=== PATIENT | male | born 1940 | race African-American/Black ===

== ENCOUNTER 2018-02-13 12:56 | Emergency (ER) | payer SELFPAY ==
[~2018-02-13] VITALS: Ht 175.3 cm; Wt 59.0 kg
[2018-02-13 13:02] VITALS: BP 117/72
== END 2018-02-13 15:10 | disposition left against medical advice (07) ==
LOC: ER 12:56
DX: R53.1 Weakness (principal); Z53.21 Procedure and treatment not carried out due to patient leaving prior to being seen by health care provider

== ENCOUNTER 2018-03-05 09:39 | Inpatient (IN) | payer OTHER ==
[2018-03-05] VITALS (22 sets, daily range): BP systolic 75–136; BP diastolic 27–99
[~2018-03-05] VITALS: Ht 170.2 cm; Wt 50.1 kg
[2018-03-05] MEDS ORDERED: DEXTROSE 50% WATER 50ML SYRINGE IV ONE ×3 (09:54→10:30)
[2018-03-05] MEDS ORDERED: SODIUM CHLORIDE 0.9% 1000ML BAG (SEPSIS BOLUS) IV ONE (10:15)
[2018-03-05] MEDS ORDERED: PIPERACILLIN/TAZ 3.375G PREMIX 50 ML IV ONE (10:30)
[2018-03-05] MEDS ORDERED: VANCOMYCIN 1 G PREMIX 200 ML IV ONE (10:30)
[2018-03-05 11:13] LABS: INR 1.2; PROTHROMBIN TIME 12.1 sec (9.1-11.1)
[2018-03-05 13:13] LABS: HEMATOCRIT. 38.9 % (42.0-52.0); HEMOGLOBIN. 12.6 g/dL (14.0-18.0); MEAN CORPUSCULAR HEMOGLOBIN 33.4 pg (28.0-32.0); MEAN CORPUSCULAR VOLUME 103.1 fL (80.0-94.0); MEAN PLATELET VOLUME 10.5 fl (7.4-10.4); PLATELET 129 x1000/uL (130-400); RED BLOOD CELL COUNT 3.78 mill/uL (4.7-6.1); RED CELL DISTRIBUTION WIDTH 16.3 % (11.6-14.6)
[2018-03-05] MEDS ORDERED: NOREPINEPHRINE 4 MG in DEXT 5% WATER 250 ML IV STA (13:14)
[2018-03-05 13:23] LABS: CHLORIDE 105 mEq/L (98-107)
[2018-03-05 13:33] LABS: CREATINE KINASE 332 IU/L (39-308)
[2018-03-05 13:38] LABS: PLATELET ESTIMATE NORMAL
[2018-03-05] MEDS ORDERED: NOREPINEPHRINE 4 MG in DEXT 5% WATER 246 ML IV PRN (14:00)
[2018-03-05] MEDS ORDERED: MAGNESIUM/ALUMINUM HYDROXIDE/SIMETHICONE 30ML UDC PO PRN (15:30)
[2018-03-05] MEDS ORDERED: GUAIFENESIN 200MG/10ML SUGAR FREE UDC PO PRN (15:30)
[2018-03-05] MEDS ORDERED: IPRATROPIUM/ALBUTEROL 0.5-3(2.5)MG/3ML NEB INH PRN (15:30)
[2018-03-05] MEDS: BLOOD SUGAR DIAGNOSTIC STRIP TEST SCH ×9 (15:30→23:50)
[2018-03-05] MEDS ORDERED: AZITHROMYCIN 500 MG in DEXT 5% WATER 250 ML IV SCH (15:30)
[2018-03-05] MEDS ORDERED: NA PHOS,M-B/NA PHOS,DI-BA ENEMA 118ML PR PRN (15:30)
[2018-03-05] MEDS ORDERED: METRONIDAZOLE 500 MG PREMIX 100 ML IV SCH (15:30)
[2018-03-05] MEDS ORDERED: CLONIDINE 0.1MG TABLET PO PRN (15:30)
[2018-03-05] MEDS ORDERED: CEFTRIAXONE 1 G PREMIX 50 ML IV SCH (15:30)
[2018-03-05] MEDS ORDERED: ONDANSETRON HCL 4MG/2ML INJ IV PRN (15:30)
[2018-03-05] MEDS ORDERED: DOCUSATE SODIUM 100MG CAPSULE PO PRN (15:30)
[2018-03-05] MEDS ORDERED: ACETAMINOPHEN 325MG TABLET PO PRN (15:30)
[2018-03-05] MEDS ORDERED: DEXTROSE 50% WATER 50ML SYRINGE IV PRN ×2 (15:30)
[2018-03-05] MEDS ORDERED: INSULIN REGULAR (DRIP) 100 UNITS in SODIUM CHLORIDE 0.9% 99 ML IV SCH (16:00)
[2018-03-05 16:18] LABS: BG BASE EXCESS -8.3 mmol/L (-2.0-2.0); BG CARBOXYHEMOGLOBIN 0.2 % (0.5-1.5); BG DEOXYHEMOGLOBIN 1.7 % (0.0-5.0); BG FRACTION INSPIRED OXYGEN 28; BG HCO3 ACT 15.7 mmol/L (22.0-26.0); BG METHEMOGLOBIN 0.2 % (0.0-1.5); BG OXYGEN SATURATION 98.3 % (92.0-98.5); BG OXYHEMOGLOBIN 97.9 % (94.0-97.0); BG PCO2 27.9 mmHg (35.0-45.0); BG PH 7.367 (7.350-7.450); BG PO2 131.9 mmHg (75.0-100.0); BG SAMPLE SITE RIGHT BRACHIAL; BG TOTAL HEMOGLOBIN 12.3 g/dL (12.0-18.0); BG VENT MODE NASAL CANNULA
[2018-03-05] MEDS: SODIUM CHLORIDE 0.9% 1,000 ML IV SCH (16:30)
[2018-03-05] MEDS ORDERED: POLYMYXIN B SULFATE/TMP 10ML BOTTLE BOTHEYE SCH (17:00)
[2018-03-05] MEDS ORDERED: PIPERACILLIN/TAZ 2.25G PREMIX 50 ML IV SCH ×2 (17:00→19:30)
[2018-03-05] MEDS ORDERED: FOLIC ACID 1 MG, THIAMINE HCL 100 MG, MVI, ADULT NO.1 10 ML in DEXT 5%/0.45% NACL 1000M... IV ONE ×4 (17:00)
[2018-03-05 17:24] LABS: CLARITY URINE CLOUDY (CLEAR); COLOR URINE ORANGE (YELLOW); KETONES URINE NEGATIVE (NEGATIVE); LEUKOCYTE ESTERASE URINE 1+ (NEGATIVE); NITRITE URINE POSITIVE (NEGATIVE); OCCULT BLOOD URINE TRACE (NEGATIVE); PROTEIN URINE 1+ (NEGATIVE); SPECIFIC GRAVITY URINE 1.024 (1.005-1.030)
[2018-03-05 18:06] LABS: BETA HYDROXYBUTYRATE 2.4 mMol/L (0.0-0.3)
[2018-03-05 18:07] LABS: T4 FREE 0.96 ng/dL (0.76-1.46)
[2018-03-05 18:12] LABS: *AMPHETAMINES SCREEN URINE NEGATIVE (NEGATIVE); *BARBITURATES SCREEN URINE NEGATIVE (NEGATIVE); *BENZODIAZEPINES SCREEN URINE NEGATIVE (NEGATIVE); *COCAINE SCREEN URINE NEGATIVE (NEGATIVE); METHADONE URINE SCREEN NEGATIVE (NEGATIVE); OPIATES URINE SCREEN NEGATIVE (NEGATIVE)
[2018-03-05 18:13] LABS: CANNABINOID URINE SCREEN NEGATIVE (NEGATIVE); PHENCYCLIDINE URINE SCREEN NEGATIVE (NEGATIVE)
[2018-03-05] MEDS: ENOXAPARIN 30MG/0.3ML SYR SUBCUT SCH (18:23)
[2018-03-05] MEDS: DEXT 5%/0.9% NACL 1,000 ML IV SCH (19:35)
[2018-03-05 19:59] LABS: FOLIC ACID (FOLATE) SERUM 5.2 ng/mL (>5.38)
[2018-03-05 20:16] LABS: HEPATITIS B SURFACE ANTIGEN NEGATIVE
[2018-03-05 20:46] LABS: HEPATITIS A AB IGM NEGATIVE (NEGATIVE)
[2018-03-05] MEDS ORDERED: PNEUMOCOCCAL 23-VAL P-SAC VAC 0.5 ML IM ONE (21:30)
[2018-03-05] MEDS ORDERED: INFLUENZA VIRUS VACCINE(AFLURIA) 0.5ML SYR IM ONE (21:30)
[2018-03-05] MEDS: PIPERACILLIN/TAZ 2.25G PREMIX 50 ML IV SCH (23:19)
[2018-03-05 23:57] LABS: CREATINE KINASE MB FRACTION 10.4 ng/mL (0.5-3.6)
[2018-03-06] VITALS (68 sets, daily range): BP systolic 62–165; BP diastolic 23–93
[2018-03-06] MEDS: BLOOD SUGAR DIAGNOSTIC STRIP TEST SCH ×9 (00:30→21:51)
[2018-03-06] MEDS ORDERED: DEXT 5%/0.45% NACL 1000ML 1,000 ML IV SCH (00:30)
[2018-03-06] MEDS: DEXT 5%/0.9% NACL 1,000 ML IV SCH (01:25)
[2018-03-06] MEDS: SODIUM CHLORIDE 0.9% 1,000 ML IV SCH ×2 (04:36→06:57)
[2018-03-06 05:35] LABS: CHLORIDE 113 mEq/L (98-107)
[2018-03-06 05:45] LABS: HEMATOCRIT. 30.4 % (42.0-52.0); HEMOGLOBIN. 9.8 g/dL (14.0-18.0); MEAN CORPUSCULAR HEMOGLOBIN 33.2 pg (28.0-32.0); MEAN CORPUSCULAR VOLUME 102.8 fL (80.0-94.0); MEAN PLATELET VOLUME 9.3 fl (7.4-10.4); PLATELET 142 x1000/uL (130-400); RED BLOOD CELL COUNT 2.96 mill/uL (4.7-6.1); RED CELL DISTRIBUTION WIDTH 16.2 % (11.6-14.6)
[2018-03-06 05:52] LABS: PHOSPHORUS 3.1 mg/dL (2.5-4.9)
[2018-03-06 05:54] LABS: CREATINE KINASE 399 IU/L (39-308)
[2018-03-06 05:57] LABS: CREATINE KINASE MB FRACTION 7.8 ng/mL (0.5-3.6)
[2018-03-06] MEDS: PIPERACILLIN/TAZ 2.25G PREMIX 50 ML IV SCH ×3 (06:57→21:57)
[2018-03-06 07:45] LABS: PLATELET ESTIMATE NORMAL
[2018-03-06] MEDS: PANTOPRAZOLE SODIUM 40 MG/VIAL IV SCH (09:44)
[2018-03-06] MEDS ORDERED: POTASSIUM CHLORIDE INJ 40 MEQ in DEXT 5% WATER 250 ML IV SCH (11:00)
[2018-03-06 11:06] LABS: BG BASE EXCESS -4.4 mmol/L (-2.0-2.0); BG CARBOXYHEMOGLOBIN 0.3 % (0.5-1.5); BG DEOXYHEMOGLOBIN 2.7 % (0.0-5.0); BG FRACTION INSPIRED OXYGEN 21; BG HCO3 ACT 19.1 mmol/L (22.0-26.0); BG METHEMOGLOBIN 0.4 % (0.0-1.5); BG OXYGEN SATURATION 97.3 % (92.0-98.5); BG OXYHEMOGLOBIN 96.6 % (94.0-97.0); BG PCO2 29.5 mmHg (35.0-45.0); BG PH 7.428 (7.350-7.450); BG PO2 102.3 mmHg (75.0-100.0); BG SAMPLE SITE RIGHT RADIAL; BG TOTAL HEMOGLOBIN 9.8 g/dL (12.0-18.0); BG VENT MODE ROOM AIR
[2018-03-06] MEDS: DEXT 5%/0.45% NACL KCL 10MEQ/L 1,000 ML IV SCH (11:48)
[2018-03-06] MEDS: ENOXAPARIN 30MG/0.3ML SYR SUBCUT SCH (16:52)
[2018-03-06] MEDS ORDERED: VANCOMYCIN 1 G PREMIX 200 ML IV NR (17:00)
[2018-03-06] MEDS: FOLIC ACID 1 MG, THIAMINE HCL 100 MG, MVI, ADULT NO.1 10 ML in DEXT 5%/0.45% NACL 1000M... IV SCH ×4 (23:43)
[2018-03-07] VITALS (91 sets, daily range): BP systolic 79–165; BP diastolic 39–103
[2018-03-07] MEDS ORDERED: NOREPINEPHRINE 4 MG in DEXT 5% WATER 250 ML IV PRN (01:00)
[2018-03-07] MEDS: BLOOD SUGAR DIAGNOSTIC STRIP TEST SCH ×4 (06:22→21:19)
[2018-03-07] MEDS: PIPERACILLIN/TAZ 2.25G PREMIX 50 ML IV SCH ×3 (06:24→21:19)
[2018-03-07 08:17] LABS: HIV SCREEN 4G Non Reactive (Non Reactive)
[2018-03-07] MEDS: DEXT 5%/0.45% NACL KCL 10MEQ/L 1,000 ML IV SCH ×4 (09:00→18:00)
[2018-03-07] MEDS: PANTOPRAZOLE SODIUM 40 MG/VIAL IV SCH (09:32)
[2018-03-07] MEDS: FOLIC ACID 1 MG, THIAMINE HCL 100 MG, MVI, ADULT NO.1 10 ML in DEXT 5%/0.45% NACL 1000M... IV SCH ×4 (11:00)
[2018-03-07] MEDS ORDERED: ALBUMIN HUMAN 25GM/500ML (5%) IV NR (13:00)
[2018-03-07] MEDS: MIDODRINE HCL 5MG TABLET PO SCH ×2 (13:48→17:37)
[2018-03-08] VITALS (61 sets, daily range): BP systolic 76–163; BP diastolic 36–92
[2018-03-08] MEDS: FOLIC ACID 1 MG, THIAMINE HCL 100 MG, MVI, ADULT NO.1 10 ML in DEXT 5%/0.45% NACL 1000M... IV SCH ×4 (01:04)
[2018-03-08 05:32] LABS: BASOPHILS % 0.5 % (0.0-2.0); EOSINOPHILS % 3.2 % (0.0-5.0); HEMATOCRIT. 30.8 % (42.0-52.0); HEMOGLOBIN. 10.2 g/dL (14.0-18.0); LYMPHOCYTES % 9.7 % (20.0-50.0); MEAN CORPUSCULAR HEMOGLOBIN 33.4 pg (28.0-32.0); MEAN CORPUSCULAR VOLUME 101.3 fL (80.0-94.0); MEAN PLATELET VOLUME 9.7 fl (7.4-10.4); MONOCYTES % 9.5 % (2.0-8.0); NEUTROPHILS % 77.1 % (40.0-76.0); PLATELET 112 x1000/uL (130-400); RED BLOOD CELL COUNT 3.04 mill/uL (4.7-6.1); RED CELL DISTRIBUTION WIDTH 16.5 % (11.6-14.6)
[2018-03-08] MEDS: BLOOD SUGAR DIAGNOSTIC STRIP TEST SCH ×4 (07:00→21:41)
[2018-03-08] MEDS: PIPERACILLIN/TAZ 2.25G PREMIX 50 ML IV SCH ×4 (07:42→23:09)
[2018-03-08] MEDS: PANTOPRAZOLE SODIUM 40 MG/VIAL IV SCH (09:31)
[2018-03-08] MEDS: DEXT 5%/0.45% NACL KCL 10MEQ/L 1,000 ML IV SCH ×3 (09:32→17:47)
[2018-03-08] MEDS: MIDODRINE HCL 5MG TABLET PO SCH ×3 (09:49→17:45)
[2018-03-08] MEDS: VANCOMYCIN 750 MG PREMIX 150 ML IV SCH (10:00)
[2018-03-09] VITALS (27 sets, daily range): BP systolic 90–182; BP diastolic 21–91
[2018-03-09] MEDS: VANCOMYCIN 750 MG PREMIX 150 ML IV SCH ×2 (04:25→22:39)
[2018-03-09] MEDS: PIPERACILLIN/TAZ 2.25G PREMIX 50 ML IV SCH ×3 (06:03→17:52)
[2018-03-09] MEDS: BLOOD SUGAR DIAGNOSTIC STRIP TEST SCH ×4 (06:35→21:43)
[2018-03-09] MEDS: MIDODRINE HCL 5MG TABLET PO SCH ×3 (10:13→17:52)
[2018-03-09] MEDS: PANTOPRAZOLE SODIUM 40 MG/VIAL IV SCH (10:13)
[2018-03-09] MEDS: DEXT 5%/0.45% NACL KCL 10MEQ/L 1,000 ML IV SCH ×2 (10:14→17:53)
[2018-03-09] MEDS ORDERED: FOLIC ACID 1 MG, THIAMINE HCL 100 MG, MVI, ADULT NO.1 10 ML in DEXT 5%/0.45% NACL 1000M... IV SCH ×4 (21:00)
[2018-03-10] VITALS: BP 136/66
[2018-03-10] MEDS: FOLIC ACID 1 MG, THIAMINE HCL 100 MG, MVI, ADULT NO.1 10 ML in DEXT 5%/0.45% NACL 1000M... IV SCH ×8 (01:01→21:58)
[2018-03-10] MEDS: PIPERACILLIN/TAZ 2.25G PREMIX 50 ML IV SCH ×5 (02:17→23:05)
[2018-03-10] MEDS: DEXT 5%/0.45% NACL KCL 10MEQ/L 1,000 ML IV SCH ×3 (03:00→23:00)
[2018-03-10 04:00] VITALS: BP 118/65
[2018-03-10] MEDS: BLOOD SUGAR DIAGNOSTIC STRIP TEST SCH ×4 (05:53→21:54)
[2018-03-10 06:30] LABS: BASOPHILS % 0.6 % (0.0-2.0); EOSINOPHILS % 3.7 % (0.0-5.0); HEMATOCRIT. 33.7 % (42.0-52.0); HEMOGLOBIN. 11.4 g/dL (14.0-18.0); LYMPHOCYTES % 13.2 % (20.0-50.0); MEAN CORPUSCULAR HEMOGLOBIN 33.8 pg (28.0-32.0); MEAN CORPUSCULAR VOLUME 100.3 fL (80.0-94.0); MEAN PLATELET VOLUME 9.1 fl (7.4-10.4); NEUTROPHILS % 72.5 % (40.0-76.0); PLATELET 140 x1000/uL (130-400); RED BLOOD CELL COUNT 3.36 mill/uL (4.7-6.1)
[2018-03-10 07:18] LABS: CHLORIDE 110 mEq/L (98-107)
[2018-03-10 08:00] VITALS: BP 113/71
[2018-03-10] MEDS: MIDODRINE HCL 5MG TABLET PO SCH ×3 (09:28→17:16)
[2018-03-10] MEDS: PANTOPRAZOLE SODIUM 40 MG/VIAL IV SCH (09:28)
[2018-03-10 12:00] VITALS: BP 128/66
[2018-03-10] MEDS ORDERED: VANCOMYCIN 750 MG PREMIX 150 ML IV SCH (12:00)
[2018-03-10] MEDS: VANCOMYCIN 750 MG PREMIX 150 ML IV SCH (13:08)
[2018-03-10 16:00] VITALS: BP 125/70
[2018-03-10 20:00] VITALS: BP 115/53
[2018-03-11] VITALS: BP 111/56
[2018-03-11 04:00] VITALS: BP 112/62
[2018-03-11] MEDS: PIPERACILLIN/TAZ 2.25G PREMIX 50 ML IV SCH ×4 (05:31→23:26)
[2018-03-11] MEDS: BLOOD SUGAR DIAGNOSTIC STRIP TEST SCH ×4 (05:48→21:22)
[2018-03-11] MEDS: VANCOMYCIN 750 MG PREMIX 150 ML IV SCH (06:04)
[2018-03-11 08:00] VITALS: BP 111/59
[2018-03-11] MEDS: PANTOPRAZOLE SODIUM 40 MG/VIAL IV SCH (08:57)
[2018-03-11] MEDS: DEXT 5%/0.45% NACL KCL 10MEQ/L 1,000 ML IV SCH (08:57)
[2018-03-11] MEDS: MIDODRINE HCL 5MG TABLET PO SCH ×3 (09:05→17:16)
[2018-03-11 12:00] VITALS: BP 113/52
[2018-03-11 16:00] VITALS: BP 127/61
[2018-03-11 20:00] VITALS: BP 107/57
[2018-03-12 00:08] VITALS: BP 136/52
[2018-03-12] MEDS: VANCOMYCIN 750 MG PREMIX 150 ML IV SCH ×2 (00:14→19:00)
[2018-03-12 04:00] VITALS: BP 136/67
[2018-03-12] MEDS: DEXT 5%/0.45% NACL KCL 10MEQ/L 1,000 ML IV SCH (05:42)
[2018-03-12] MEDS: PIPERACILLIN/TAZ 2.25G PREMIX 50 ML IV SCH (05:45)
[2018-03-12] MEDS: BLOOD SUGAR DIAGNOSTIC STRIP TEST SCH ×4 (06:16→21:00)
[2018-03-12 08:00] VITALS: BP 114/51
[2018-03-12] MEDS: MIDODRINE HCL 5MG TABLET PO SCH ×3 (09:40→18:06)
[2018-03-12] MEDS: FAMOTIDINE 20MG/2ML VIAL IV SCH (09:40)
[2018-03-12] MEDS: MULTIVITAMINS,THER W-MINERALS TABLET PO SCH (09:40)
[2018-03-12] MEDS: FOLIC ACID 1MG TABLET PO SCH (09:40)
[2018-03-12] MEDS: THIAMINE HCL 100MG TABLET PO SCH (09:40)
[2018-03-12 12:00] VITALS: BP 130/57
[2018-03-12 16:00] VITALS: BP 126/51
[2018-03-12 20:00] VITALS: BP 121/82
[2018-03-13] VITALS: BP 148/75
[2018-03-13] MEDS: DEXT 5%/0.45% NACL KCL 10MEQ/L 1,000 ML IV SCH ×2 (01:00→11:00)
[2018-03-13 04:00] VITALS: BP 137/66
[2018-03-13] MEDS: BLOOD SUGAR DIAGNOSTIC STRIP TEST SCH ×3 (06:26→16:45)
[2018-03-13] MEDS: FAMOTIDINE 20MG/2ML VIAL IV SCH (08:34)
[2018-03-13] MEDS: FOLIC ACID 1MG TABLET PO SCH (08:34)
[2018-03-13] MEDS: THIAMINE HCL 100MG TABLET PO SCH (08:35)
[2018-03-13] MEDS: MIDODRINE HCL 5MG TABLET PO SCH ×3 (08:35→17:00)
[2018-03-13] MEDS: MULTIVITAMINS,THER W-MINERALS TABLET PO SCH (08:35)
[2018-03-13 12:00] VITALS: BP 105/60
[2018-03-13 20:00] VITALS: BP 109/49
== END 2018-03-13 22:17 | DRG 871 ==
LOC: ER 09:45 → MICUNO 13:50 → EDBEDREQ 13:52 → EDBEDREQSVC 13:52 → ENRESERV 14:06 → 5WST 03-09 13:30
PROVIDERS: ADMIT Internal Medicine; ATTEND Internal Medicine
PROC: 02HV33Z Insertion of Infusion Device into Superior Vena Cava, Percutaneous Approach (ICD-10-PCS; principal; 2018-03-05)
PROC: B548ZZA Ultrasonography of Superior Vena Cava, Guidance (ICD-10-PCS; 2018-03-05)
DX: A41.9 Sepsis, unspecified organism (principal); N17.0 Acute kidney failure with tubular necrosis; R65.21 Severe sepsis with septic shock; E43 Unspecified severe protein-calorie malnutrition; E11.10 Type 2 diabetes mellitus with ketoacidosis without coma; G92 Toxic encephalopathy; M62.82 Rhabdomyolysis; E87.2 Acidosis; N39.0 Urinary tract infection, site not specified; Z68.1 Body mass index [BMI] 19.9 or less, adult; E11.649 Type 2 diabetes mellitus with hypoglycemia without coma; H01.009 Unspecified blepharitis unspecified eye, unspecified eyelid; R62.7 Adult failure to thrive; J06.9 Acute upper respiratory infection, unspecified; D63.8 Anemia in other chronic diseases classified elsewhere; E11.51 Type 2 diabetes mellitus with diabetic peripheral angiopathy without gangrene; I48.91 Unspecified atrial fibrillation; Z59.0 Homelessness; L89.819 Pressure ulcer of head, unspecified stage
CPT/HCPCS: 36415; 36569; 36600; 71045; 76937; 80048; 80061; 80202; 80305; 82010; 82375; 82550; 82553; 82607; 82693; 82746; 82805; 82962; 83036; 83540; 83550; 83605; 83880; 84100; 84145; 84439; 84443; 84484; 86705; 86709; 86803; 87340; 87389; 87804; 92610; 93005; 93306; 93970; 96365; 96366; 96368; 96375; 97162; 97166; 97530; 97535; 99291; C1725; C9113; J1650; J1815; J2543; J3370; J3411; J3480; J3490; J7030; J7042; J7050; J7060; J7070; P9041; A4315